=== PATIENT | female | born 1965 | race Caucasian/White ===

== ENCOUNTER 2019-04-19 10:30 | Outpatient (REF) | payer MEDICARE, SELFPAY ==
[2019-04-19 22:31] LABS: Anion Gap 8.4 mmol/L (3-11); BUN 20 mg/dL (7-18); CO2 25.6 mmol/L (21.0-32.0); CREATININE 0.99 mg/dL (0.55-1.02); Calcium 8.8 mg/dL (8.5-10.1); Chloride 105 mmol/L (98-107); Estimated GFR 58.45 (mL/min/1.73m2); Glucose 81 mg/dL (70-100); Potassium 4.2 mmol/L (3.5-5.1); Sodium 139 mmol/L (136-145)
== END 2019-04-19 10:50 ==
LOC: NCHCN 10:30
PROVIDERS: PCP Family Medicine; Visit Provider Family Medicine
DX: R60.0 Localized edema (principal)
CPT/HCPCS: 80048

== ENCOUNTER 2020-04-24 21:41 | Outpatient (REF) | payer MEDICARE, SELFPAY ==
[2020-04-24 21:40] LABS: Anion Gap 10.3 mmol/L (3-11); BUN 19 mg/dL (7-18); CO2 23.7 mmol/L (21.0-32.0); CREATININE 0.99 mg/dL (0.55-1.02); Calcium 8.6 mg/dL (8.5-10.1); Chloride 108 mmol/L (98-107); Estimated GFR 58.24 (mL/min/1.73m2); Glucose 78 mg/dL (74-106); Potassium 4.3 mmol/L (3.5-5.1); Sodium 142 mmol/L (136-145); TSH 4.07 uIU/mL (0.36-3.74)
== END 2020-04-24 22:01 ==
LOC: NCHCN 21:41
PROVIDERS: PCP Family Medicine; Visit Provider Family Medicine
DX: R60.0 Localized edema (principal); E03.9 Hypothyroidism, unspecified
CPT/HCPCS: 80048; 84443

== ENCOUNTER 2020-07-25 10:52 | Outpatient (REF) | payer MEDICARE, SELFPAY | END 2020-07-25 11:12 | LOC: NCHCN 10:52 | PROVIDERS: PCP Family Medicine; Visit Provider Family Medicine | DX: E03.9 Hypothyroidism, unspecified (principal) | CPT/HCPCS: 84443 ==

== ENCOUNTER 2020-10-23 08:33 | Outpatient (REF) | payer MEDICARE, SELFPAY ==
[2020-10-23 14:07] LABS: TSH 1.25 uIU/mL (0.36-3.74)
== END 2020-10-23 08:34 | disposition home or self-care (01) ==
LOC: NCHCN 08:33
PROVIDERS: PCP Family Medicine; Visit Provider Family Medicine
DX: E03.9 Hypothyroidism, unspecified (principal)
CPT/HCPCS: 84443

== ENCOUNTER 2021-05-17 12:18 | Outpatient (REF) | payer MEDICARE, SELFPAY ==
[2021-05-17 14:38] LABS: HCT 41.4 % (36.0-46.0); HGB 12.9 g/dL (11.2-15.7); MCH 27.8 pg (27.0-33.0); MCHC 31.2 % (32.0-36.0); MCV 89.2 fL (80-95); MPV 12.7 fL (8.0-11.0); Platelet Count 126 10^3/uL (130-400); RBC 4.64 10^6/uL (3.93-5.22); RDW 14.6 % (11.7-14.6); RDW-SD 47.6 fL; WBC 5.33 10^3/uL (4.4-10.8)
[2021-05-17 14:50] LABS: Anion Gap 9.5 mmol/L (3-11); BUN 13 mg/dL (7-18); CO2 25.5 mmol/L (21.0-32.0); Calcium 8.6 mg/dL (8.5-10.1); Calculated LDL 96 mg/dL (<100); Chloride 108 mmol/L (98-107); Cholesterol 153 mg/dL (<200); Estimated GFR 57.35 (mL/min/1.73m2); Glucose 82 mg/dL (74-106); HDL Cholesterol 36 mg/dL (40-60); Potassium 4.2 mmol/L (3.5-5.1); Sodium 143 mmol/L (136-145); TSH 1.46 uIU/mL (0.36-3.74); Triglyceride 107 mg/dL (<150)
== END 2021-05-17 12:19 | disposition home or self-care (01) ==
LOC: NCHCN 12:18
PROVIDERS: PCP Family Medicine; Visit Provider Family Medicine
DX: E03.9 Hypothyroidism, unspecified (principal); E78.5 Hyperlipidemia, unspecified; K92.1 Melena
CPT/HCPCS: 80048; 80061; 85027; 84443

== ENCOUNTER 2021-11-15 12:05 | Outpatient (REF) | payer OTHER, SELFPAY ==
[2021-11-15 16:03] LABS: Abs Immature Grans 0.01 10^3/uL (0.0-0.06); Absolute Basophil Count 0.04 10^3/uL (0.0-0.2); Absolute Eosinophil Count 0.13 10^3/uL (0.0-0.7); Absolute Lymphocyte Count 0.82 10^3/uL (1.2-3.4); Absolute Monocyte Count 0.27 10^3/uL (0.1-0.8); Absolute Neutrophil Count 3.15 10^3/uL (1.2-6.7); Basophils % 0.9; Eosinophils % 2.9; HGB 13.2 g/dL (11.2-15.7); Immature Grans % 0.2; Lymphocytes % 18.6; MCH 27.8 pg (27.0-33.0); MCHC 31.4 % (32.0-36.0); MCV 88.4 fL (80-95); MPV 12.7 fL (8.0-11.0); Monocytes % 6.1; Neutrophils % 71.3; Nucleated RBC 0 %; Platelet Count 109 10^3/uL (130-400); RBC 4.75 10^6/uL (3.93-5.22); RDW 14.5 % (11.7-14.6); RDW-SD 47.1 fL; WBC 4.42 10^3/uL (4.4-10.8)
[2021-11-15 16:27] LABS: ALT 16 U/L (14-59); AST 18 U/L (15-37); Alkaline Phosphatase 87 U/L (46-116); Anion Gap 10.4 mmol/L (3-11); BUN 22 mg/dL (7-18); Bilirubin, Total 0.7 mg/dL (0.2-1.0); CO2 23.6 mmol/L (21.0-32.0); Calcium 8.8 mg/dL (8.5-10.1); Chloride 108 mmol/L (98-107); Estimated GFR 57.15 (mL/min/1.73m2); Glucose 86 mg/dL (74-106); Potassium 3.9 mmol/L (3.5-5.1); Sodium 142 mmol/L (136-145); Total Protein 7.3 g/dL (6.4-8.2)
== END 2021-11-15 12:06 | disposition home or self-care (01) ==
LOC: NCHCN 12:05
PROVIDERS: PCP Family Medicine; Visit Provider Family Medicine
DX: Z91.81 History of falling (principal); K92.1 Melena; D69.6 Thrombocytopenia, unspecified
CPT/HCPCS: 80053; 85025

== ENCOUNTER 2022-01-13 14:06 | Outpatient (REF) | payer OTHER, SELFPAY ==
[2022-01-13 21:54] LABS: ALT 14 U/L (14-59); AST 18 U/L (15-37); Alkaline Phosphatase 88 U/L (46-116); Anion Gap 11.9 mmol/L (3-11); BUN 14 mg/dL (7-18); Bilirubin, Total 0.9 mg/dL (0.2-1.0); CO2 21.1 mmol/L (21.0-32.0); Calcium 8.8 mg/dL (8.5-10.1); Chloride 107 mmol/L (98-107); Estimated GFR 57.15 (mL/min/1.73m2); Glucose 75 mg/dL (74-106); Sodium 140 mmol/L (136-145); Total Protein 7.4 g/dL (6.4-8.2)
[2022-01-15 08:08] LABS: AFP Tumor Marker <2.5 ng/mL (<8.1)
[2022-01-15 11:37] LABS: Hep B Core Antibody Negative (Negative)
[2022-01-15 11:44] LABS: Hepatitis C Ab w Rflx HCV PCR Negative (Negative)
[2022-01-15 11:52] LABS: HIV-1/2 Ag & Ab Screen Negative (Negative)
== END 2022-01-13 14:07 | disposition home or self-care (01) ==
LOC: NCHCN 14:06
PROVIDERS: PCP Family Medicine; Visit Provider Family Medicine
DX: K74.60 Unspecified cirrhosis of liver (principal); K75.81 Nonalcoholic steatohepatitis (NASH); D69.6 Thrombocytopenia, unspecified; E66.8 Other obesity; Z11.4 Encounter for screening for human immunodeficiency virus [HIV]; R18.8 Other ascites
CPT/HCPCS: 80053; 86704; 86803; 87389; 82105; 85610

== ENCOUNTER 2022-01-20 17:14 | Outpatient (REF) | payer OTHER, SELFPAY ==
[2022-01-20 16:16] LABS: Anion Gap 10.6 mmol/L (3-11); BUN 15 mg/dL (7-18); CO2 22.4 mmol/L (21.0-32.0); CREATININE 1.1 mg/dL (0.55-1.02); Calcium 8.6 mg/dL (8.5-10.1); Chloride 107 mmol/L (98-107); Glucose 81 mg/dL (74-106); Potassium 3.8 mmol/L (3.5-5.1); Sodium 140 mmol/L (136-145)
== END 2022-01-20 17:15 | disposition home or self-care (01) ==
LOC: NCHCN 17:14
PROVIDERS: PCP Family Medicine; Visit Provider Family Medicine
DX: R60.0 Localized edema (principal); K74.60 Unspecified cirrhosis of liver
CPT/HCPCS: 80048

== ENCOUNTER 2022-07-22 17:55 | Outpatient (REF) | payer OTHER, SELFPAY ==
[2022-07-22 15:29] LABS: Calculated LDL 105 mg/dL (<100); Cholesterol 158 mg/dL (<200); HDL Cholesterol 38 mg/dL (40-60); TSH 1.72 uIU/mL (0.36-3.74); Triglyceride 76 mg/dL (<150)
== END 2022-07-22 17:56 | disposition home or self-care (01) ==
LOC: NCHCN 17:55
PROVIDERS: PCP Family Medicine; Visit Provider Family Medicine
DX: E78.5 Hyperlipidemia, unspecified (principal); E03.9 Hypothyroidism, unspecified
CPT/HCPCS: 80061; 84443

== ENCOUNTER 2022-09-30 02:19 | Outpatient (CLI) | payer OTHER, SELFPAY ==
--- NOTE | 2022-09-30 | DI.MRI_ITS ---
Exam(s) MR ABDOMEN WO EXAM: MR ABDOMEN WO CLINICAL HISTORY: CIRRHOSIS LIVER,NONALCOHOLIC STEATOHEPATITIS,ASCITES,K74.60,K75.81,R18.8 TECHNIQUE: Multiplanar multisequence MRI was performed without IV contrast, as per request No IV contrast COMPARISON: Prior outside ultrasound examination of 12/24/2021 was reviewed FINDINGS: VISUALIZED LUNG BASES: No pleural effusions evident. There is a mild perihepatic ascites. Also mild left-sided paracolic ascites. LIVER: Liver is slightly prominent size and lobulated contour consistent with cirrhosis. There is si gnal drop on out of phase imaging consistent with hepatic steatosis. There is, however, no discrete focal hepatic mass evident in the liver on this noninfused study. There is no abnormal signal in the fat anterior to the liver, as suspected on the prior ultrasound ex amination. BILIARY: No gallstones nor gallbladder wall edema. No pericholecystic fluid the CBD is not dilated. PANCREAS: There is no evidence of pancreatic mass nor dilatation of the pancreatic duct. SPLEEN: Upper normal size.No obvious discrete focal hepatic lesions identified. ADRENALS: There are no significant adrenal masses. KIDNEYS: Left kidney unremarkable. There is a benign cyst in the inferior pole aspect of the right k idney which measures2 x 2 cm. No solid renal masses. No hydronephrosis. No hydroureter. ABDOMINAL AORTA: Not enlarged and there is no significant para-aortic adenopathy. ANTERIOR ABDOMINAL WALL/GI: There is no evidence of significant anterior abdominal wall hernia in the field of view of this study.Is no evidence of obvious bowel obstruction. OSSEOUS: There are no lytic osseous lesions in the field of view of this study. IMPRESSION: 1. Hepatomegaly, hepatic steatosis and hepatic cirrhosis. No evidence of discrete ominous focal hepa tic mass on this noninfused study. There is mild ascites evident. Spleen size upper normal. 2. Biliary tree is not dilated. No obvious gallstones. No focal pancreatic abnormalities. DATA REPOSITORY:
== END 2022-09-30 02:39 ==
LOC: DI 02:20
PROVIDERS: PCP Family Medicine; Visit Provider Family Medicine
DX: R16.0 Hepatomegaly, not elsewhere classified (principal); K76.0 Fatty (change of) liver, not elsewhere classified; K74.60 Unspecified cirrhosis of liver
CPT/HCPCS: 74181

== ENCOUNTER 2022-10-21 16:07 | Outpatient (REF) | payer OTHER, SELFPAY ==
[2022-10-21 15:12] LABS: Anion Gap 7.2 mmol/L (3-11); BUN 18 mg/dL (7-18); CO2 26.8 mmol/L (21.0-32.0); CREATININE 1.2 mg/dL (0.55-1.02); Calcium 9.5 mg/dL (8.5-10.1); Chloride 104 mmol/L (98-107); Estimated GFR 52.47 (mL/min/1.73m2); Glucose 89 mg/dL (74-106); Potassium 4.5 mmol/L (3.5-5.1); Sodium 138 mmol/L (136-145)
== END 2022-10-21 16:08 | disposition home or self-care (01) ==
LOC: NCHCN 16:07
PROVIDERS: PCP Family Medicine; Visit Provider Family Medicine
DX: N18.9 Chronic kidney disease, unspecified (principal)
CPT/HCPCS: 80048

== ENCOUNTER 2023-06-22 15:08 | Outpatient (REF) | payer OTHER, SELFPAY ==
[2023-06-22 17:16] LABS: HCT 45.6 % (36.0-46.0); HGB 14.3 g/dL (11.2-15.7); MCH 28.4 pg (27.0-33.0); MCHC 31.4 % (32.0-36.0); MCV 91 fL (80-95); MPV 12.2 fL (8.0-11.0); Platelet Count 118 10^3/uL (130-400); RBC 5.04 10^6/uL (3.93-5.22); RDW 14.7 % (11.7-14.6); RDW-SD 49.1 fL; WBC 4.54 10^3/uL (4.4-10.8)
[2023-06-22 18:18] LABS: ALT 15 U/L (14-59); AST 19 U/L (15-37); Albumin 3.8 g/dL (3.4-5.0); Alkaline Phosphatase 77 U/L (46-116); Anion Gap 10.2 mmol/L (3-11); BUN 15 mg/dL (7-18); Bilirubin, Total 0.9 mg/dL (0.2-1.0); CO2 23.8 mmol/L (21.0-32.0); CREATININE 1.1 mg/dL (0.55-1.02); Calcium 9.1 mg/dL (8.5-10.1); Calculated LDL 102 mg/dL (<100); Chloride 107 mmol/L (98-107); Cholesterol 153 mg/dL (<200); Estimated GFR 58.24 (mL/min/1.73m2); Glucose 78 mg/dL (74-106); HDL Cholesterol 34 mg/dL (40-60); Potassium 4.1 mmol/L (3.5-5.1); Sodium 141 mmol/L (136-145); TSH 0.69 uIU/mL (0.36-3.74); Total Protein 7.4 g/dL (6.4-8.2); Triglyceride 88 mg/dL (<150)
== END 2023-06-22 15:09 | disposition home or self-care (01) ==
LOC: NCHCN 15:08
PROVIDERS: PCP Family Medicine; Visit Provider Family Medicine
DX: E66.9 Obesity, unspecified (principal); R18.8 Other ascites; K74.60 Unspecified cirrhosis of liver; E03.9 Hypothyroidism, unspecified; D69.6 Thrombocytopenia, unspecified; Z12.2 Encounter for screening for malignant neoplasm of respiratory organs; Z87.891 Personal history of nicotine dependence
CPT/HCPCS: 80053; 80061; 85027; 84443

== ENCOUNTER 2024-06-27 18:45 | Outpatient (REF) | payer OTHER, SELFPAY ==
[2024-06-27 17:16] LABS: ALT 14 U/L (14-59); AST 22 U/L (15-37); Alkaline Phosphatase 91 U/L (46-116); Anion Gap 8.4 mmol/L (3-11); BUN 19 mg/dL (7-18); Bilirubin, Total 1.05 mg/dL (0.2-1.0); CO2 23.6 mmol/L (21.0-32.0); CREATININE 1.1 mg/dL (0.55-1.02); Calcium 9.1 mg/dL (8.5-10.1); Chloride 111 mmol/L (98-107); Estimated GFR 57.88 (mL/min/1.73m2); Glucose 89 mg/dL (74-106); Potassium 4.6 mmol/L (3.5-5.1); Sodium 143 mmol/L (136-145); TSH 3.57 uIU/mL (0.36-3.74); Total Protein 7.9 g/dL (6.4-8.2)
== END 2024-06-27 18:46 | disposition home or self-care (01) ==
LOC: NCHCN 18:45
PROVIDERS: PCP Family Medicine; Visit Provider Family Medicine
DX: E03.9 Hypothyroidism, unspecified (principal)
CPT/HCPCS: 80053; 84443

== ENCOUNTER 2025-01-30 18:27 | Outpatient (REF) | payer MEDICARE, SELFPAY ==
[2025-01-30 21:31] LABS: HCT 43.8 % (36.0-46.0); HGB 13.9 g/dL (11.2-15.7); MCH 27.9 pg (27.0-33.0); MCHC 31.7 % (32.0-36.0); MCV 88 fL (80-95); Platelet Count 124 10^3/uL (130-400); RBC 4.98 10^6/uL (3.93-5.22); RDW 14.9 % (11.7-14.6); RDW-SD 47.8 fL; WBC 5.37 10^3/uL (4.4-10.8)
[2025-01-30 21:42] LABS: INR 1.1 (0.9-1.1); Prothrombin Time 11.3 sec (9.1-11.1)
== END 2025-01-30 18:28 | disposition home or self-care (01) ==
LOC: NCHCN 18:27
PROVIDERS: PCP Family Medicine; Visit Provider Family Medicine
DX: K74.60 Unspecified cirrhosis of liver (principal)
CPT/HCPCS: 85027; 85610

== ENCOUNTER 2025-06-19 14:51 | Outpatient (REF) | payer MEDICARE, SELFPAY ==
[2025-06-19 15:17] LABS: HCT 44.7 % (36.0-46.0); HGB 14.4 g/dL (11.2-15.7); MCH 28.4 pg (27.0-33.0); MCHC 32.2 % (32.0-36.0); MCV 88 fL (80-95); MPV 12.1 fL (8.0-11.0); Platelet Count 116 10^3/uL (130-400); RBC 5.07 10^6/uL (3.93-5.22); RDW 15.2 % (11.7-14.6); RDW-SD 48.5 fL; WBC 4.83 10^3/uL (4.4-10.8)
[2025-06-19 15:28] LABS: INR 1.2 (0.9-1.1); Prothrombin Time 11.8 sec (9.1-11.1)
[2025-06-19 15:39] LABS: ALT 12 U/L (14-59); AST 18 U/L (15-37); Albumin 4.0 g/dL (3.4-5.0); Alkaline Phosphatase 96 U/L (46-116); Anion Gap 7.2 mmol/L (3-11); BUN 16 mg/dL (7-18); Bilirubin, Total 1.4 mg/dL (0.2-1.0); CO2 27.8 mmol/L (21.0-32.0); Calcium 8.7 mg/dL (8.5-10.1); Chloride 106 mmol/L (98-107); Estimated GFR 57.52 (mL/min/1.73m2); Glucose 88 mg/dL (74-106); Potassium 4.0 mmol/L (3.5-5.1); Sodium 141 mmol/L (136-145); TSH 3.25 uIU/mL (0.36-3.74); Total Protein 8.0 g/dL (6.4-8.2)
[2025-06-19 15:42] LABS: Hemoglobin A1C 5.0 % (<5.7)
[2025-06-19 17:57] LABS: NT-proBNP 49 pg/mL (<300)
== END 2025-06-19 14:52 | disposition home or self-care (01) ==
LOC: NCHCN 14:51
PROVIDERS: PCP Family Medicine; Visit Provider Family Medicine
DX: K74.60 Unspecified cirrhosis of liver (principal); R63.5 Abnormal weight gain
CPT/HCPCS: 80053; 85027; 83036; 83880; 84443; 85610

== ENCOUNTER 2025-07-03 16:05 | Outpatient (REF) | payer MEDICARE, SELFPAY ==
[2025-07-03 17:32] LABS: Anion Gap 9.9 mmol/L (3-11); BUN 21 mg/dL (7-18); CO2 30.1 mmol/L (21.0-32.0); Calcium 9.2 mg/dL (8.5-10.1); Chloride 100 mmol/L (98-107); Estimated GFR 51.82 (mL/min/1.73m2); Glucose 85 mg/dL (74-106); Potassium 3.8 mmol/L (3.5-5.1); Sodium 140 mmol/L (136-145)
== END 2025-07-03 16:06 | disposition home or self-care (01) ==
LOC: NCHCN 16:05
PROVIDERS: PCP Family Medicine; Visit Provider Family Medicine
DX: K74.60 Unspecified cirrhosis of liver (principal)
CPT/HCPCS: 80048